=== PATIENT | female | born 1980 | race Caucasian/White ===

== ENCOUNTER → 2025-08-11 06:44 | Outpatient (CLI) | payer OTHER, SELFPAY | LOC: ECHO 06:45 | PROVIDERS: PCP Family Medicine; Referring Provider Family Medicine; Visit Provider Family Medicine | DX: R55 Syncope and collapse (principal); R00.1 Bradycardia, unspecified; R00.2 Palpitations | CPT/HCPCS: 93306 ==

== ENCOUNTER → 2025-08-13 13:35 | Outpatient (CLI) | payer OTHER, SELFPAY | LOC: CAR 13:36 | PROVIDERS: PCP Family Medicine; Referring Provider Family Medicine; Visit Provider Family Medicine | DX: R00.1 Bradycardia, unspecified (principal); R55 Syncope and collapse | CPT/HCPCS: 93246 ==

== ENCOUNTER → 2025-08-25 07:05 | Outpatient (CLI) | payer OTHER, SELFPAY ==
[2025-08-25 09:48] LABS: Cortisol AM (Before 10AM) 17.9 ug/dL (4.46-22.7)
[2025-08-26 06:39] LABS: Insulin Level Total 8.3 uIU/mL (2.6-24.9)
== END ==
PROVIDERS: PCP Family Medicine; Referring Provider Family Medicine; Visit Provider Family Medicine
DX: R55 Syncope and collapse (principal); E16.2 Hypoglycemia, unspecified
CPT/HCPCS: 36415; 82533; 83525; 84206; 84681

== ENCOUNTER → 2025-08-28 17:08 | Outpatient (CLI) | payer OTHER, SELFPAY ==
--- NOTE | 2025-08-28 17:10 | DI.MG.S_ITS ---
MM screening mammo BI: 08/28/2025. BI-RADS: 1 CLINICAL: 45-year old female for bilateral screening mammogram. Tyrer-Cuzick lifetime risk of 11.1%. No personal or first-degree family history of breast cancer. Current reported family history of breast cancer: paternal grandmother. PRIOR EXAMS: None. This is a baseline mammogram. MAMMOGRAPHY TECHNIQUE: 2D and 3D (tomosynthesis) digital mammographic views obtained, with additional images as needed for full coverage. Current study was also evaluated with a Computer Aided Detection (CAD) system. DENSITY C. The breasts are heterogeneously dense, which may obscure small masses. MAMMOGRAPHY FINDINGS Bilateral: No suspicious mass, asymmetry, microcalcification, or other abnormality seen. IMPRESSION: * No evidence of malignancy. RECOMMENDATIONS Bilateral * Annual screening mammography. OVERALL ASSESSMENT CATEGORY BI-RADS-1: Negative. The [employer] recommends annual screening mammography beginning at age 40 for women with average risk of breast cancer. ELECTRONICALLY SIGNED: Leah Cedillo M.D. on 08/31/2025 at 12:48:34 PM PT Interpreting Station ID: [id number]
== END ==
LOC: MAMMO 17:09
PROVIDERS: PCP Family Medicine; Referring Provider Family Medicine; Visit Provider Family Medicine
DX: Z12.31 Encounter for screening mammogram for malignant neoplasm of breast (principal); R92.333 Mammographic heterogeneous density, bilateral breasts; Z80.3 Family history of malignant neoplasm of breast
CPT/HCPCS: 77063; 77067